=== PATIENT | male | born 1985 ===

== ENCOUNTER 2016-09-30 23:27 | Emergency (ER) | payer OTHER ==
[2016-09-30 23:38] VITALS: RESP 18
[2016-10-01] MEDS ORDERED: Oxycodone/Acetaminophen 5/325 mg Tab PO STA (00:41)
[2016-10-01] MEDS ORDERED: Oxycodone/Acetaminophen 5/325 mg Tab ONE (00:44)
--- NOTE | 2016-10-01 01:10 | C.PDOC ---
History Of Present Illness 31 year old male presents to the ED with complaints of left sided pain and abrasions after accidentally being struck by a fork lift while at work. Patient denies LOC, vomiting, head injury or headache. Time Seen by Provider: 09/30/16 23:45 Chief Complaint (Nursing): Lower Extremity Problem/Injury History Per: Patient History/Exam Limitations: no limitations Onset/Duration Of Symptoms: Hrs Current Symptoms Are (Timing): Still Present Recent travel outside of the [place]: No - Ankle/Foot Description Of Injury: Struck With Object (Patient was struck by a forklift on the entire left side from upper arm to foot) Past Medical History Reviewed: Historical Data, Nursing Documentation, Vital Signs Vital Signs: Last Vital Signs Temp 98.3 F 10/01/16 01:54 Pulse 78 10/01/16 01:54 Resp 18 10/01/16 01:54 BP 116/72 10/01/16 01:54 Pulse Ox 99 10/01/16 02:40 Family History: States: Unknown Family Hx - Social History Hx Alcohol Use: No Hx Substance Use: No - Immunization History Hx Tetanus Toxoid Vaccination: No Hx Influenza Vaccination: No Hx Pneumococcal Vaccination: No Review Of Systems Constitutional: Negative for: Fever Gastrointestinal: Negative for: Nausea, Vomiting Musculoskeletal: Positive for: Arm Pain (left arm), Back Pain, Leg Pain (left leg), Foot Pain (left foot) Neurological: Negative for: Headache, Dizziness Physical Exam - Physical Exam Appears: Non-toxic, No Acute Distress Skin: Warm, Dry, Other (large superfical abrasions to the left arm) Head: Atraumatic, No Swelling, No Abrasion, No Laceration Eye(s): bilateral: Normal Inspection, PERRL, EOMI Neck: Normal ROM, No Midline Cervical Tenderness, No Paracervical Tenderness, Supple Back: Normal Inspection, No CVA Tenderness, No Vertebral Tenderness, No Decreased ROM, No Paraspinal Tenderness Extremity: No Normal ROM (Normal ROM of the upper extremities. Limited ROM to the left lower extremity due to pain. ), Tenderness (Some tenderness to left upper thigh and hip area. Tenderness to lateral malleolus of the left foot. ), No Pedal Edema, Capillary Refill (good capillary refill ), No Deformity, Swelling (swelling to left ankle and foot ) Neurological/Psych: Oriented x3 Gait: Steady ED Course And Treatment O2 Sat by Pulse Oximetry: 99 (room air ) - Other Rad Left Hip X-Ray X-Ray: Interpreted by Me, Viewed By Me Interpretation: No dislocation. No acute findings. No abnormalities. Left Tib/Fib X-Ray X-Ray: Interpreted by Me, Viewed By Me Interpretation: No fractures. No acute findings. No abnormalities. Left Foot X-Ray X-Ray: Interpreted by Me, Viewed By Me Interpretation: Questionable cuneiform, second metarsal MTP fracture. Progress Note: Posterior short leg splint applied and pt ambulatory with crutches Reevaluation Time: 03:26 Orthopedic Time Performed: 01:00 Procedure: Splint (Posterior orthoglass splint ) Type: Short, Posterior Location: Left, Foot Consent obtained: Verbal Performed by: Mid-level Provider (Performed by CP and checked by me.) Patient tolerated procedure: Well Disposition - Disposition Referrals: [facility] [Outside] [facility] [place] [Outside] [facility] [Outside] Disposition: HOME/ ROUTINE Disposition Time: 01:40 Condition: STABLE Additional Instructions: Sigue en clinica [place] [facility] Regresa si peor Prescriptions: Naproxen [Naprosyn] 1 tab PO BID PRN #25 tab PRN Reason: Pain Instructions: Foot Fracture in Adults (ED) Forms: Work Excuse Print Language: TURKISH - Clinical Impression Clinical Impression: Foot fracture, left, Abrasion, Multiple contusions - Scribe Statement The provider has reviewed the documentation as recorded by the Scribe Chely Strong All medical record entries made by the Scribe were at my direction and personally dictated by me. I have reviewed the chart and agree that the record accurately reflects my personal performance of the history, physical exam, medical decision making, and the department course for this patient. I have also personally directed, reviewed, and agree with the discharge instructions and disposition.
[2016-10-01 01:56] VITALS: BP 116/72; PULSE 78; TEMP 98.3
[2016-10-01 02:40] VITALS: O2SAT 99
--- NOTE | 2016-10-01 14:45 | RAD ---
PROCEDURE: Radiographs of the left tibia and fibula. HISTORY: pain, hit with forklift COMPARISON: None available. TECHNIQUE: Frontal and lateral views obtained. FINDINGS: BONES: No fracture or destructive lesion. JOINT SPACES: Unremarkable. OTHER FINDINGS: None. IMPRESSION: Unremarkable radiographs of the left tibia and fibula.
--- NOTE | 2016-10-01 14:46 | RAD ---
PROCEDURE: Radiographs of the left great toe. TECHNIQUE:: AP radiograph of the left foot, with oblique and lateral view of the left great toe. COMPARISON: None. FINDINGS: BONES: Limited examination. Suboptimal oblique view. No evidence of fracture. JOINTS: Normal. SOFT TISSUES: Normal. OTHER FINDINGS: None. IMPRESSION: No evidence of fracture. Limited examination.
--- NOTE | 2016-10-01 14:47 | RAD ---
PROCEDURE: HISTORY: pain, trauma, forklift COMPARISON: TECHNIQUE: FINDINGS: IMPRESSION:
== END 2016-10-01 02:15 | disposition home or self-care (01) ==
LOC: SUPCPDRO 23:27 → C.ER 23:27
DX: S92.902A Unspecified fracture of left foot, initial encounter for closed fracture (principal); S40.812A Abrasion of left upper arm, initial encounter; W24.0XXA Contact with lifting devices, not elsewhere classified, initial encounter; Y93.89 Activity, other specified; Y92.69 Other specified industrial and construction area as the place of occurrence of the external cause; Y99.8 Other external cause status